=== PATIENT | female | born 1940 | race Caucasian/White ===

== ENCOUNTER 2017-09-18 05:45 | Inpatient (IN) | payer OTHER ==
--- NOTE | 2017-09-17 11:54 | GHP ---
[f rep st] PREOP HISTORY AND PHYSICAL DATE OF ADMISSION: 09/18/2017 PROBLEM: Left hip arthritis. HISTORY OF PRESENT ILLNESS: The patient is a 76-year-old woman to be admitted for a left total hip a rthroplasty. She has had severe progressive pain in her left hip for the past 6 months. She has charly ly pain. Her activities are very limited. I did her right total hip arthroplasty in 2006. I did her right total knee arthroplasty in 2007. She lives in [place], her son and her daughter live here, and she comes out here to have her surge ry. PAST MEDICAL HISTORY: She is treated for elevated cholesterol and hypertension. No history of heart disease, DVT, hepatitis, sleep apnea, or bleeding problems. CURRENT MEDICATIONS: Atorvastatin 20 mg 3 times a week, losartan 100 mg per day, metoprolol ER 25 mg once per day. She also takes an aspirin a day, but she stop that a week prior to surgery. DRUG ALLERGIES: Codeine. She tolerates oxycodone. She is allergic to penicillin. SOCIAL HISTORY: She does not smoke cigarettes. She is a . She occasionally drinks alcohol. S he is going to be staying with her daughter here in [place]. FAMILY HISTORY: Positive for cancer and cerebral vascular accident. PHYSICAL EXAMINATION: GENERAL: She is an alert, healthy-appearing, elderly woman. VITAL SIGNS: He ight 5 feet 2 inches, weight 155 pounds, BMI 28.3. HEENT: Eyes: Conjunctivae and sclerae are clear . She had cataract surgery on the left eye with a lens implant. Mouth: Good oral hygiene. No loos e teeth. CHEST: Clear. HEART: Regular rhythm. No murmurs. EXTREMITIES: Pertinent findings are limited to her left hip. She has full hip extension and 110 degrees of flexion. As she flexes the h ip, she develops a 10-degree external rotation contracture and has only 10 additional degrees of exte rnal rotation. Abduction 20 degrees. IMAGING: Her films show very severe degenerative arthritis in her left hip. She is bone on bone. P eripheral osteophytes are present. She is about 10 mm short on the left. She has an uncemented righ t total hip arthroplasty. It looked like it is a ceramic on ceramic bearing surface. IMPRESSION ON ADMISSION: 1. Left hip advanced degenerative arthritis. She will undergo a left total hip arthroplasty. 2. Status post right total hip arthroplasty in 2006. 3. Status post right total knee arthroplasty in 2007. 4. Treatment for hypertension and elevated cholesterol. PLAN: She will undergo a left total hip arthroplasty. The surgery has been described to her, includ ing the risks, complications, expectations, and recovery time. I have discussed with her the risk of dislocation, leg length inequality, infection, and sciatic nerve injury. I plan on intentionally le ngthening her on the left to equalize her leg lengths. All her questions have been answered. All he r daughter's questions have been answered. She consents to surgery. /[id number]/MODL
[2017-09-18] MEDS ORDERED: DEXAMETHASONE 4 MG/ML VIAL IVP ONE (05:56)
[2017-09-18] MEDS ORDERED: ACETAMINOPHEN 325 MG TAB PO ONE (05:56)
[2017-09-18] MEDS ORDERED: FAMOTIDINE 20 MG TAB PO ONE (05:56)
[2017-09-18] MEDS ORDERED: VANCOMYCIN PHARMACY TO DOSE MISC ONE (06:00)
[2017-09-18] MEDS ORDERED: TRANEXAMIC ACID 1,300 MG in NS 100 ML IV ONE (06:00)
[2017-09-18] MEDS ORDERED: POVIDONE-IODINE 20 ML in SODIUM CL IRRIG SOLUTION 500 ML IRR ONE (06:00)
[2017-09-18] MEDS ORDERED: ROPIVACAINE 0.2% 80 MG, EPINEPHrine 0.2 MG, KETOROLAC TROMETHAMINE 30 MG in BAG 0 ML IU ONE (06:00)
[2017-09-18] MEDS ORDERED: VANCOMYCIN HCL/NORMAL SALINE 250 ML IV SCH (06:00)
[2017-09-18] MEDS ORDERED: LR 1,000 ML IV ONE (06:04)
[2017-09-18] MEDS ORDERED: LIDOCAINE 1% 2 ML INJ ID PRN (06:04)
[2017-09-18] MEDS ORDERED: ceFAZolin 1 GM/5 ML SYR ONE (06:46)
--- NOTE | 2017-09-18 06:57 | PDHPUP ---
History & Physical Update H&P update statement: This history and physical update is based on an assessment of the patient which was completed after admission or registration (within 24 hours), but prior to the surgery/procedure. H&P update: H&P reviewed & patient examined, no change in patient's condition since H&P completed
[2017-09-18] MEDS ORDERED: VANCOMYCIN 1 GM in NS 250 ML IV ONE (07:00)
[2017-09-18] MEDS ORDERED: MIDAZOLAM 2 MG/2 ML VIAL IVP ONE (07:21)
--- NOTE | 2017-09-18 07:23 | PDANEPAE ---
ANE History of Present Illness l hip oa ANE Past Medical History - Cardiovascular History Hx Hypertension: Yes Hx Arrhythmias: No Hx Chest Pain: No Hx Coronary Artery / Peripheral Vascular Disease: No Hx CHF / Valvular Disease: No Hx Palpitations: No - Pulmonary History Hx COPD: No Hx Asthma/Reactive Airway Disease: No Hx Recent Upper Respiratory Infection: No Hx Oxygen in Use at Home: No Hx Sleep Apnea: No Sleep Apnea Screening Result - Last Documented: Negative Pulmonary History Comment: left lung lobectomy - Neurologic History Hx Cerebrovascular Accident: No Hx Seizures: No Hx Dementia: No - Endocrine History Hx Diabetes: No - Renal History Hx Renal Disorders: No - Liver History Hx Hepatic Disorders: No - Neurological & Psychiatric Hx Hx Neurological and Psychiatric Disorders: No - Cancer History Hx Cancer: Yes Cancer History Comment: lung malignacy - Congenital Disorder History Hx Congenital Disorders: No - GI History Hx Gastrointestinal Disorders: Yes Gastrointestinal History Comment: gerd,reflux - Other Health History Other Health History: thin skin, bruises easily. - Chronic Pain History Chronic Pain: Yes (pinched nerves in back) - Surgical History Prior Surgeries: lobectomy left lung. prolapsed bladder ANE Review of Systems Review of Systems: - Exercise capacity METS (RN): 4 METS ANE Patient History - Allergies Allergies/Adverse Reactions: codeine Allergy (Verified 08/08/17 11:29) Vomiting Penicillins Allergy (Verified 08/08/17 11:28) Rash - Home Medications Home Medications: Atorvastatin Calcium [Lipitor 20 mg (*)] 20 mg PO MWF@21 08/08/17 [Last Taken ] Calcium Carbonate [Oyster Shell Calcium 500 mg (*)] 1,000 mg PO DAILY 08/08/17 [ Last Taken 09/11/17] Cholecalciferol Vit D3 [Vitamin D3 2000 units tab (OTC)] 4,000 units PO DAILY [Last Taken 09/11/17] Fluticasone Nasal [Flonase Nasal [place] (RX)] 2 spray E[place]ARE HS 08/08/17 [Last Taken 09/17/17 20:00] Glucosamine/Chondroitin [Glucosamine/Chondroitin (*)] 1 each PO DAILY 08/08/17 [ Last Taken 09/17/17 08:00] Herbals/Supplements -Info Only 1 ea PO DAILY 08/08/17 [Last Taken 09/11/17] Losartan Potassium [Cozaar 50 mg (*)] 100 mg PO DAILY 08/08/17 [Last Taken 09/18 04:30] Magnesium Oxide [Magnesium Oxide 400 mg (*)] 400 mg PO DAILY 08/08/17 [Last Taken 09/11/17] Metoprolol Succinate Xr [Toprol Xl 25 mg (*)] 12.5 mg PO DAILY 08/08/17 [Last Taken 09/17/17 20:00] - NPO status NPO Since - Liquids (Date): 09/17/17 NPO Since - Liquids (Time): 20:00 NPO Since - Solids (Date): 09/17/17 NPO Since - Solids (Time): 18:30 - Smoking Hx Smoking Status: Never smoked - Family Anes Hx Family Hx Anesthesia Complications: none ANE Labs/Vital Signs - Vital Signs Blood Pressure: 153/86 Heart Rate: 56 Respiratory Rate: 16 O2 Sat (%): 94 Height: 154.94 cm Weight: 64.864 kg ANE Physical Exam - Airway Neck exam: FROM Mallampati Score: Class 1 Mouth exam: normal dental/mouth exam - Pulmonary Pulmonary: no respiratory distress - Cardiovascular Cardiovascular: regular rate and rhythym - ASA Status ASA Status: II ANE Anesthesia Plan Anesthesia Plan: MAC, spinal
[2017-09-18] MEDS ORDERED: MIDAZOLAM 2 MG/2 ML VIAL ONE (07:24)
[2017-09-18] MEDS ORDERED: PROPOFOL/EMULSION 500 MG/50 ML BOTTLE IV ONE (07:27)
[2017-09-18] MEDS ORDERED: fentaNYL 100 MCG/2 ML INJ ONE (07:27)
[2017-09-18] MEDS ORDERED: HYDROmorphONE/DILAUDID 1 MG/ML INJ IVP PRN (08:24)
[2017-09-18] MEDS ORDERED: ONDANSETRON 4 MG/2 ML VIAL IVP PRN ×2 (08:24→09:09)
[2017-09-18] MEDS ORDERED: PROMETHAZINE HCL 25 MG/ML INJ IVP PRN ×2 (08:24→09:09)
[2017-09-18] MEDS ORDERED: fentaNYL 100 MCG/2 ML INJ IVP PRN (08:24)
[2017-09-18] MEDS ORDERED: NALOXONE HCL 0.4 MG/ML INJ IVP PRN (08:24)
--- NOTE | 2017-09-18 09:02 | POSTOPPROG ---
Post Op Note Date of Operation: 09/18/17 Surgeon: Duke Dill Beam Dyer: Timothy Unger/Steven Carter Anesthesiologist: Dr. Tai Simpson Anesthesia: IV Sedation, Spinal Post-op Diagnosis: Left hip severe degenerative arthritis. Procedure: Left total hip arthroplasty. Inf/Abcess present in the surg proc area at time of surgery?: No EBL: 100-500
[2017-09-18] MEDS ORDERED: diphenhydrAMINE 25 MG CAP PO PRN (09:09)
[2017-09-18] MEDS ORDERED: CYCLOBENZAPRINE 10 MG TAB PO PRN (09:09)
[2017-09-18] MEDS ORDERED: LACTULOSE 20 GM/30 ML UDCUP PO PRN (09:09)
[2017-09-18] MEDS ORDERED: KETOROLAC 30 MG/1 ML SDV IVP PRN (09:09)
[2017-09-18] MEDS ORDERED: BISACODYL 10 MG SUPP PR PRN (09:09)
[2017-09-18] MEDS ORDERED: POLYETHYLENE GLYCOL 3350 17 GM PKT PO PRN (09:09)
[2017-09-18] MEDS ORDERED: NS 500 ML IV PRN (09:09)
[2017-09-18] MEDS ORDERED: TEMAZEPAM 15 MG CAP PO PRN (09:09)
[2017-09-18] MEDS ORDERED: ONDANSETRON DISINTEGRATING 4 MG TAB PO PRN (09:09)
[2017-09-18] MEDS ORDERED: MAGNESIUM HYDROXIDE 30 ML UDCUP PO PRN (09:09)
[2017-09-18] MEDS ORDERED: DIPHENOXYLATE/ATROPINE LOMOTIL 1 TAB PO PRN (09:09)
[2017-09-18] MEDS ORDERED: METOCLOPRAMIDE 10 MG/2 ML VIAL IVP PRN (09:09)
[2017-09-18] MEDS ORDERED: PROMETHAZINE HCL 25 MG SUPPR PR PRN (09:09)
--- NOTE | 2017-09-18 09:16 | POSTANESTH ---
Post Anesthetic Evaluation Cardiovascular Status: Normal, Stable Respiratory Status: Normal, Stable Level of Consciousness/Mental Status: Can Participate in Eval Pain Control: Adequate, Prn Tx Ordered Nausea/Vomiting Control: Adequate, Prn Tx Ordered Complications Possibly Related to Anesthesia: None Noted
[2017-09-18] MEDS ORDERED: LR 1,000 ML IV SCH (09:30)
[2017-09-18] MEDS: ACETAMINOPHEN 325 MG TAB PO SCH ×2 (11:02→18:48)
[2017-09-18] MEDS: traMADol 50 MG TAB PO PRN ×2 (11:02→20:11)
--- NOTE | 2017-09-18 11:10 | GOP ---
[f rep st] OPERATIVE REPORT DATE OF OPERATION: 09/18/2017 SURGEON: Duke Dill MD KOSHER DIETARY SERVICE MANAGER: James Unger, PAC and Steven Carter CFA. ANESTHESIA: Combination of Marcaine spinal, and IV sedation. ANESTHESIOLOGIST: Antoinette Simpson MD PREOPERATIVE DIAGNOSIS: Left hip arthritis. POSTOPERATIVE DIAGNOSIS: Left hip arthritis. PROCEDURE PERFORMED: Left total hip arthroplasty, ceramic femoral head on highly cross-linked polyet hylene cup liner. FINDINGS: ESTIMATED BLOOD LOSS: About 200 mL. DESCRIPTION OF PROCEDURE: The patient was given 1 g of IV vancomycin preoperatively within 60 minute s of surgery. She also received IV tranexamic acid at a dose of 20 mg/kg. She was placed on the ope rating room table and given spinal anesthesia with Marcaine by Dr. Simpson. She was then placed supin e and given IV sedation. A Yu catheter was not used. She wore a SERGEY stocking and SCD on the nono perative leg. She was rolled to the right lateral decubitus position. The position was secured with the pegboard table attachment. An axillary roll was used, and all pressure points were carefully pa dded. I was careful to lock her pelvis in a rigid vertical position. Her perineum was isolated with plastic adhesive drapes. The left hip and left lower extremity were prepped with ChloraPrep. They were draped free using sterile sheets, stockinette, and Ioban plastic adhesive drape. The [employer] time-out was performed to verify the correct surgical side and site and the correct patient identity. The [place] time-out was also performed. I made a 4-4.5 inch straight oblique posterolateral hip skin incision. Subcutaneous tissues were sha rply divided, and hemostasis was obtained using electrocautery. The proximal end of her fascia vance was identified and split along the axis of its fibers. I then curved posteriorly and proximally, and split the fascia of gluteus daja and bluntly split the muscle fibers in line with their orientati on. The [place] self-retaining retractor was inserted. Her sciatic nerve was located, partially ex posed, and protected throughout the procedure. The external rotators and the posterior hip capsule w ere divided as separate layers at the base of the femoral neck, tagged, and reflected posteriorly. A n 8 inch Steinmann pin was inserted vertically into the ilium, superior to the acetabulum. An 8-inch drill bit was inserted vertically into the greater trochanter parallel to the first pin. The distan ce between the 2 was measured for leg length reference. Her femoral head was dislocated posteriorly. Severe degenerative changes were present on the femoral head. Her femoral neck was osteotomized at the appropriate level and inclination. I was careful to preserve all the posterior capsule and most of the anterior capsule. The remnant of her damaged labrum was excised. She had osteophytes along the superior and anterior superior rim of her acetabulum which were removed with a rongeur. I prepared the femur first. This allowed me to middleware architect the amount of natural femoral neck anteversion. This, in turn, allowed me to later determine the correct amount of cup anteversion. She had approx imately 15 degrees of natural femoral neck anteversion. The canal was opened laterally first with a box chisel. I then power reamed and hand broached sequentially up to a size 4. The size 4 Accolade II high offset broach was used as a trial stem. I was careful to lateralize adequately. Appropriate retractors were inserted to expose the acetabulum. The acetabulum was reamed sequentiall y up to size 51. I selected a 52 mm Elo Tritanium solid-backed hemispherical shell. This was ta pped securely into place in the proper degree of inclination and anteversion. I used the transverse acetabular ligament and other acetabular bony landmarks to help me properly orient the cup. I insert ed a screw-in metal dome hole plug. Cup fixation was good and I did not think supplemental screws we re necessary. I performed a series of trial reductions to determine length and stability. I concluded that the siz e 4 high offset stem with a 0 mm neck length and a 32 mm head with a 0-degree trial liner gave me the proper combination of appropriate lengthening and good anterior and posterior stability. She was 7 or 8 mm short preoperatively, and I was intentionally lengthening her. The 0 degree or flush [place] X3 highly cross-linked polyethylene liner was inserted and tapped peterson ferguson into place. I chose the Elo Accolade II stem in a size 4 with high offset. This was inserte d press-fit and was very tight. I did 1 final trial reduction and confirmed that the 0 neck length w ith a 32 mm head was the proper combination. I selected the [place] Biolox Delta ceramic head with a n outside diameter of 32 mm and a neck length of 0 mm. This was tapped securely onto the clean trunn ion. The acetabulum was irrigated, cleaned, and the hip was reduced 1 final time. She had excellent anterior and posterior stability and appropriate lengthening. Then, 40 mL of the joint anesthetic cocktail were injected into the capsule, the deep musculature, an d subcutaneous tissues around the skin edges. The joint was thoroughly irrigated 1 final time with a dilute Betadine solution. Her sciatic nerve was reinspected and looked unharmed. The external rota tors and the posterior hip capsule were repaired in separate layers with #2 FiberWire sutures through drill holes in the greater trochanter. This provided a strong posterior capsular and external rotat or repair. Her fascia vance was closed first with a couple of interrupted [id number] #2 FiberWir e sutures followed by a running #2 barbed Ethicon Stratafix PDO suture. Subcutaneous tissues were cl osed with a running 0 barbed Ethicon Stratafix Monoderm suture. The skin was closed with a running 3 -0 barbed Ethicon Stratafix Monoderm subcuticular suture. The skin edges were reapproximated and sea led with Dermabond glue. The wound was covered with a strip of Telfa, and everything was held in alin ce with a piece of clear plastic Tegaderm. A long-leg SERGEY stocking and SCD were applied to her left lower extremity. She wore a stocking and SC D on the opposite leg during the procedure. An abduction pillow was placed between her knees. She w as awakened from anesthesia and rolled to the supine position on her [facility]. She was taken to PACU in satisfactory condition. There were no recognized intraoperative complications. INSTRUMENT COUNT: The sponge and needle count were correct on 2 occasions. IMPLANTS: I used a [place] Tritanium hemispherical press-fit solid backed acetabular shell with an o utside diameter of 52 mm. The liner was a [place] X3 0-degree highly cross-linked liner with an insi de diameter of 32 mm. The femoral component was a high offset [place] Accolade II stem in a size 4 a nd press-fit. Her femoral head was a [place] Biolox Delta ceramic head with a 0 neck length and a 32 mm outside diameter. Timothy Unger and Steven Carter acted as surgical assistants. Their assistance was a medical necess ity for safe completion of the procedure. /[id number]/MODL
[2017-09-18] MEDS: oxyCODONE IR 5 MG TAB PO PRN (13:35)
[2017-09-18] MEDS ORDERED: VANCOMYCIN 1 GM in D5W 250 ML IV SCH (19:00)
[2017-09-18] MEDS: SENNOSIDES/DOCUSATE SODIUM TAB PO SCH (20:12)
[2017-09-18] MEDS: FAMOTIDINE 20 MG TAB PO SCH (20:12)
[2017-09-18] MEDS: ASPIRIN 325 MG TAB PO SCH (20:16)
[2017-09-18] MEDS ORDERED: FLUTICASONE NASAL 120 SPRAYS/16 GM MDI EACHNARE SCH ×2 (21:00)
[2017-09-18 23:32] VITALS: RESP 16
[2017-09-19] MEDS: ACETAMINOPHEN 325 MG TAB PO SCH ×2 (00:16→05:56)
[2017-09-19] MEDS: oxyCODONE IR 5 MG TAB PO PRN (00:17)
[2017-09-19 05:21] LABS: HEMATOCRIT 27.7 % (38.0-47.0); HEMOGLOBIN 9.3 g/dL (12.6-16.3)
--- NOTE | 2017-09-19 07:42 | SOAPPROG ---
SOAP Progress Note Assessment/Plan: Assessment: POD #1. s/p L NE[place] Awake, alert, afebrile. VSS. H/H ok. Mild pain. Dressing clean and dry. Normal sciatic nerve function. OOB yesterday. Plan: D/c to home later today. 09/19/17 07:41 Objective: Vital Signs Temp Pulse Resp BP Pulse Ox 36.7 C 57 L 16 115/57 L 100 09/19/17 04:00 09/19/17 04:00 09/19/17 04:00 09/19/17 04:00 09/19/17 04:00 Laboratory Results 09/19/17 04:40 09/18/17 09/19/17 09/20/17 05:59 05:59 05:59 Intake Total 3160 Output Total 1950 Balance 1210 ICD10 Worksheet Patient Problems: Problems Problem Status Onset Osteoarthritis of left hip Acute
--- NOTE | 2017-09-19 08:14 | GDS ---
[f rep st] DISCHARGE SUMMARY ADMISSION DIAGNOSIS: Severe left hip osteoarthritis. DISCHARGE DIAGNOSIS: Severe left hip osteoarthritis. OPERATIONS PERFORMED: Left total hip arthroplasty. POSTOPERATIVE COMPLICATIONS: None. CONDITION ON DISCHARGE: Improved. DESCRIPTION OF HOSPITAL COURSE: The patient was admitted to the hospital on the day of surgery. Her admission H and H were 12.1 and 35.1. Her blood cell count was normal. The same day under a combin ation of IV sedation and Marcaine spinal anesthesia, the patient underwent a left total hip arthropla sty. The patient was treated with multimodal DVT prophylaxis, including SERGEY stockings, SCDs, early mobiliz ation, and full-strength aspirin. A Yu catheter was not used. She did not need any blood transfu anna. On the 1st postoperative day, her H and H was 9.3 and 27.7. She was seen by Physical therapy and made good progress with hip range of motion exercises and ambulation. By the time of discharge, the patient was independent with her walker and afebrile. DISPOSITION: The patient is discharged to her home. She will go directly to outpatient physical the rapy. SERGEY stockings x1 week. Abduction pillow in bed x3 weeks. Full-strength aspirin daily x21 day s. She has prescriptions for oxycodone and tramadol and Celebrex for pain control. She will be seen back in the office on 10/10. She will call prior to that appointment if she has any problems. Copy requested to: Dr. Pozo /[id number]/MODL
[2017-09-19 08:45] VITALS: BP 121/65; PULSE 58; TEMP 98.2; O2SAT 99
[2017-09-19] MEDS ORDERED: METOPROLOL SUCCINATE XR 25 MG TAB PO SCH (09:00)
[2017-09-19] MEDS ORDERED: LOSARTAN POTASSIUM 50 MG TAB PO SCH (09:00)
[2017-09-19] MEDS ORDERED: FERROUS SULFATE 140 MG TAB.ER PO SCH (09:00)
[2017-09-19] MEDS ORDERED: MAGNESIUM OXIDE 400 MG TAB PO SCH (09:00)
[2017-09-19] MEDS: FAMOTIDINE 20 MG TAB PO SCH (09:31)
[2017-09-19] MEDS: traMADol 50 MG TAB PO PRN (09:32)
[2017-09-19] MEDS: ASPIRIN 325 MG TAB PO SCH (09:32)
[2017-09-19] MEDS: SENNOSIDES/DOCUSATE SODIUM TAB PO SCH (09:32)
--- NOTE | 2017-09-19 11:15 | ASMTCMCOM ---
CM Note CM Note Notes: [place] had planned OA of hip. Pt will reside with dghtr Bessy until 10/25/17. Pt medically stable for d/c, no CM d/c needs identified. Pt has outpatient PT scheduled. Confirmed w pt dghtr that family will be able to provide 24 hour supervision per PT rec. Date Signed: 09/19/2017 11:14 AM Electronically Signed By:ROBIN Kirkland
--- NOTE | 2017-09-19 12:02 | ASDISCHSUM ---
Discharge Information Plan Status:Home with No Needs Medically Cleared to Leave: Discharge Date:09/19/2017 11:58 AM CM D/C Disposition:Home, Routine, Self-Care ADT D/C Disposition:Home, Routine, Self-Care Projected Discharge Date:09/19/2017 11:58 AM Transportation at D/C: Discharge Delay Reason: Follow-Up Date:09/19/2017 11:58 AM Discharge Slot: Final Diagnosis: Placement Information Patient Contact Information Contact Name:JOURDAN Relationship:Franco Address: Work Phone: City: [facility] Phone: State/Zip Code: Email: Financial Information Financial Class: Primary Plan Desc:MEDICARE INPATIENT Primary Plan Number:[id number] Secondary Plan Desc:[employer] PPO POS HMO SIG ADM Secondary Plan Number:[id number] Assessment Information [facility] CM Progress Note CM Note CM Note Notes: Pt is from [place] and had planned OA of hip. Pt will reside with [facility] Bessy until 10/25/17. Pt medically stable for d/c, no CM d/c needs identified. Pt has outpatient PT scheduled. Confirmed w pt dghtr that family will be able to provide 24 hour supervision per PT rec. Date Signed: 09/19/2017 11:14 AM Electronically Signed By:ROBIN Kirkland Intervention Information
[2017-09-19] MEDS ORDERED: ATORVASTATIN CALCIUM 20 MG TAB PO SCH (21:00)
== END 2017-09-19 11:58 | disposition home or self-care (01) | DRG 470 ==
LOC: F3N 05:45
PROVIDERS: ADMIT Orthopaedic Surgery; ATTEND Orthopaedic Surgery
PROC: 0SRB04Z Replacement of Left Hip Joint with Ceramic on Polyethylene Synthetic Substitute, Open Approach (ICD-10-PCS; principal; 2017-09-18 07:15)
DX: M16.12 Unilateral primary osteoarthritis, left hip (principal); E78.00 Pure hypercholesterolemia, unspecified; I10 Essential (primary) hypertension; Z85.118 Personal history of other malignant neoplasm of bronchus and lung; Z90.2 Acquired absence of lung [part of]
CPT/HCPCS: 97110-GP; 97116-GP; 97161-GP; 97165-GO; 97535-GO; G8978-GP-CI; G8979-GP-CI; G8980-GP-CI; G8987-GO-CI; G8988-GO-CI; G8989-GO-CI; J0171; J1100; J1885; J2250; J2704; J2795; J3010; J3370